=== PATIENT | female | born 1955 | race Caucasian/White ===

== ENCOUNTER → 2021-03-04 | Outpatient (REF) | payer MEDICARE, OTHER ==
[2021-03-04 18:13] LABS: CREATININE, URINE 98.1 MG/DL; MAU/CREAT RATIO 42.8 MCG/MG (0.0-30.0)
== END ==
LOC: M LAB REF 16:52
PROVIDERS: ATTEND Nurse Practitioner Family
DX: E11.9 Type 2 diabetes mellitus without complications (principal)